=== PATIENT | female | born 2000 | race Caucasian/White ===

== ENCOUNTER 2020-04-08 12:38 | Emergency (ER) | payer SELFPAY ==
[2020-04-08 13:39] LABS: Urine Blood NEGATIVE (NEG); Urine Glucose NEGATIVE (NEG); Urine Protein NEGATIVE (NEG); Urine pH 6.5 (5.0-7.0)
[2020-04-08 13:44] LABS: Absolute Lymphocytes (CBC) 2.6 K/uL (0.7-4.9); Basophils % 0.5 % (0-1.3); Hematocrit 42.1 % (36.0-45.0); Lymphocytes % 35.1 % (15.3-44.8); MPV 9.2 fL (7.6-11.3); RBC Red Blood Cell Count 4.87 M/uL (3.86-4.86)
[2020-04-08 13:46] LABS: ALT/SGPT 16 U/L (12-78); AST/SGOT 16 U/L (15-37); Alkaline Phosphatase 72 U/L (45-117); BUN Blood Urea Nitrogen 12 mg/dL (7-18); Bicarbonate 28 mmol/L (21-32); Bilirubin Direct 0.1 mg/dL (0-0.2); Bilirubin Total 0.5 mg/dL (0.2-1.0); Glucose Level 90 mg/dL (74-106); NT PRO-BNP 62 pg/mL (<125); Potassium 3.8 mmol/L (3.5-5.1); Sodium Level 141 mmol/L (136-145); Troponin (Emerg Dept Use Only) < 0.02 ng/mL (0.0-0.045)
[2020-04-08 13:51] LABS: Protime INR 1.02
[2020-04-08] MEDS ORDERED: ONDANSETRON 4 MG/2 ML VIAL ONE (13:57)
--- NOTE | 2020-04-08 14:20 | RAD REPORT ---
EXAM DESCRIPTION: RAD - Chest Single View - 04/08/2020 1:56 pm CLINICAL HISTORY: presyncope COMPARISON: None TECHNIQUE: AP portable chest image was obtained 04/08/2020 1:56 pm . FINDINGS: Lungs are clear. Heart and vasculature are normal. No measurable pleural effusion and no p neumothorax. No acute bony abnormality seen. No acute aortic findings suspected. IMPRESSION: No acute cardiopulmonary process.
--- NOTE | 2020-04-08 15:24 | EDPHYS ---
Physician Documentation [facility] Name: Mary Ramachandran Age: 19 yrs Sex: Female : 2000 Arrival Date: 04/08/2020 Time: 12:39 Bed 20 Private MD: ED Physician Jostin Lamb HPI: 04/08 12:51 This 19 yrs old Female presents to ER via Ambulatory with complaints of jmm Nausea, Dizziness. 12:51 Onset: The symptoms/episode began/occurred gradually, 1 day(s) ago. Possible causes: jmm unknown. The symptoms are aggravated by nothing. The symptoms are alleviated by nothing. Associated signs and symptoms: Pertinent negatives: abdominal pain, dysuria, fever. The patient has not experienced similar symptoms in the past. This is a 19 year old female with no chronic medical conditions that presents to the ED with complaints of fatigue, near syncope. Denies chest pain or shortness of breath. . [employer]: 12:58 LMP 02/29/2020 iw Historical: - Allergies: 12:58 PENICILLINS; iw - Home Meds: 12:58 None [Active]; iw - PMHx: 12:58 None; iw - PSHx: 12:58 None; iw - Immunization history:: Adult Immunizations not up to date. - Social history:: Smoking status: Patient denies any tobacco usage or history of. ROS: 12:51 Cardiovascular: Negative for chest pain, palpitations, and edema. jmm 12:51 Constitutional: Positive for fatigue. 12:51 Respiratory: Negative for shortness of breath. 12:51 Neuro: Positive for near syncope. 12:51 All other systems are negative. Exam: 12:51 Constitutional: This is a well developed, well nourished patient who is awake, alert, jmm and in no acute distress. Head/Face: atraumatic. Eyes: EOMI, no conjunctival erythema appreciated ENT: Moist Mucus Membranes Neck: Trachea midline, Supple Chest/axilla: Normal chest wall appearance and motion. Cardiovascular: Regular rate and rhythm. No edema appreciated Respiratory: Normal respirations, no respiratory distress appreciated Abdomen/GI: Non distended, soft Back: Normal ROM Skin: General appearance color normal MS/ Extremity: Moves all extremities, no obvious deformities appreciated, no edema noted to the lower extremities Neuro: Awake and alert, normal gait Psych: Behavior is normal, Mood is normal, Patient is cooperative and pleasant Vital Signs: 12:55 BP 122 / 82; Pulse 80; Resp 16; Temp 97.9; Pulse Ox 99% on R/A; Weight 72.57 kg; Height iw 5 ft. 1 in. (154.94 cm); 13:45 BP 95 / 85; Pulse 77; Resp 16 S; Pulse Ox 98% on R/A; jd3 15:17 BP 99 / 66; Pulse 80; Resp 17 S; Pulse Ox 98% on R/A; jd3 15:22 BP 108 / 76; Pulse 75; Resp 19 S; Pulse Ox 99% on R/A; jd3 12:55 Body Mass Index 30.23 (72.57 kg, 154.94 cm) iw MDM: 12:54 Patient medically screened. [facility] 15:22 Data reviewed: vital signs, nurses notes. Counseling: I had a detailed discussion with brady the patient and/or guardian regarding: the historical points, exam findings, and any diagnostic results supporting the discharge/admit diagnosis, lab results, radiology results, to return to the emergency department if symptoms worsen or persist or if there are any questions or concerns that arise at home. ED course: Patient is alert and non toxic in appearance in the ED. Patient states feeling much better. Advised to follow up with pcp for reevaluation and otherwise given strict return precautions. Patient understood and agrees with the plan of care. . 04/08 12:59 Order name: Basic Metabolic Panel; Complete Time: 13:53 [facility] 04/08 12:59 Order name: CBC with Diff; Complete Time: 13:53 [facility] 04/08 12:59 Order name: LFT's; Complete Time: 13:53 [facility] 04/08 12:59 Order name: Magnesium; Complete Time: 13:53 [facility] 04/08 12:59 Order name: NT PRO-BNP; Complete Time: 13:53 [facility] 04/08 12:59 Order name: PT-INR; Complete Time: 14:55 [facility] 04/08 12:59 Order name: Troponin (emerg Dept Use Only); Complete Time: 13:53 [facility] 04/08 12:59 Order name: XRAY Chest (1 view); Complete Time: 14:28 [facility] 04/08 12:59 Order name: EKG; Complete Time: 13:01 [facility] 04/08 13:26 Order name: Urine Dipstick--Ancillary (enter results); Complete Time: 13:53 04/08 13:26 Order name: Urine --Ancillary (enter results); Complete Time: 13:53 04/08 14:52 Order name: D-Dimer; Complete Time: 14:55 [facility] 04/08 12:59 Order name: Cardiac monitoring; Complete Time: 13:26 [facility] 04/08 12:59 Order name: EKG - Nurse/Tech; Complete Time: 13:26 [facility] 04/08 12:59 Order name: IV Saline Lock; Complete Time: 13:26 [facility] 04/08 12:59 Order name: Labs collected and sent; Complete Time: 13: [facility] 04/08 12:59 Order name: O2 Per Protocol; Complete Time: 13:31 [facility] 04/08 12:59 Order name: O2 Sat Monitoring; Complete Time: 13:31 [facility] 04/08 12:59 Order name: Urine Dipstick-Ancillary (obtain specimen); Complete Time: 13:25 [facility] 04/08 13:02 Order name: Urine Test (obtain specimen); Complete Time: 13:25 [facility] Administered Medications: 13:44 Drug: Zofran (Ondansetron) 4 mg Route: IVP; Site: left antecubital; jd3 14:40 Follow up: Response: No adverse reaction jd3 Disposition: 17:06 Co-signature as Attending Physician, Jostin Lamb MD. rn Disposition: 04/08/20 15:24 Discharged to Home. Impression: Syncope and collapse. - Condition is Stable. - Discharge Instructions: Near-Syncope. - Medication Reconciliation Form, Thank You Letter, Antibiotic Education, Prescription Opioid Use, Work release form form. - Follow up: Private Physician; When: 2 - 3 days; Reason: Recheck today's complaints, Continuance of care, Re-evaluation by your physician. Signatures: Dispatcher [employer] [facility] Sammy Quinones PA PA jmm Williams, Irene, Jostin Sandhu RN, MD MD rn Davies, Jonathon, RN RN jd3 Corrections: (The following items were deleted from the chart) 14:53 14:30 D-DIMER+COAG.LAB.BRZ ordered. [facility] 15:37 15:24 04/08/2020 15:24 Discharged to Home. Impression: Syncope and collapse. Condition jd3 is Stable. Forms are Medication Reconciliation Form, Thank You Letter, Antibiotic Education, Prescription Opioid Use. Follow up: Private Physician; When: 2 - 3 days; Reason: Recheck today's complaints, Continuance of care, Re-evaluation by your physician. brady
--- NOTE | 2020-04-08 15:24 | ER ---
Nurse's Notes [facility] Name: Mary Ramachandran Age: 19 yrs Sex: Female : 2000 Arrival Date: 04/08/2020 Time: 12:39 Bed 20 Private MD: Diagnosis: Syncope and collapse Presentation: 04/08 12:55 Chief complaint: Patient states: yesterday was feeling nauseous, today was feeling iw faint and shaky. Coronavirus screen: At this time, the client does not indicate any symptoms associated with coronavirus-19. Ebola Screen: Patient negative for fever greater than or equal to 101.5 degrees Fahrenheit, and additional compatible Ebola Virus Disease symptoms Patient denies exposure to infectious person. Patient denies travel to an Ebola-affected area in the 21 days before illness onset. No symptoms or risks identified at this time. Initial Sepsis Screen: Does the patient meet any 2 criteria? No. Patient's initial sepsis screen is negative. Does the patient have a suspected source of infection? No. Patient's initial sepsis screen is negative. Risk Assessment: Do you want to hurt yourself or someone else? Patient reports no desire to harm self or others. Onset of symptoms was April 08, 2020. 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 - Social history:: Smoking status: Patient denies any tobacco usage or history of. Screenin:45 Abuse screen: Denies threats or abuse. Nutritional screening: No deficits noted. jd3 Tuberculosis screening: No symptoms or risk factors identified. Fall Risk Ambulatory Aid- None/Bed Rest/Nurse Assist (0 pts). Gait- Normal/Bed Rest/Wheelchair (0 pts) Mental Status- Oriented to own ability (0 pts). Total Green Fall Scale indicates No Risk (0-24 pts). Assessment: 13:44 General: Appears in no apparent distress. uncomfortable, Behavior is calm, cooperative, jd3 appropriate for age. Pain: Denies pain. Neuro: Level of Consciousness is awake, alert, obeys commands, Oriented to person, place, time, situation, Reports dizziness, Denies weakness blurred vision numbness. Cardiovascular: Denies chest pain, Capillary refill < 3 seconds Patient's skin is warm and dry. Respiratory: Airway is patent Respiratory effort is even, unlabored, Respiratory pattern is regular, symmetrical, Denies cough, shortness of breath. GI: Abdomen is flat, non-distended, Abd is soft and non tender X 4 quads. Reports nausea. : No signs and/or symptoms were reported regarding the genitourinary system. EENT: No signs and/or symptoms were reported regarding the EENT system. Derm: Skin is intact, Skin is dry, Skin is normal, Skin temperature is warm. Musculoskeletal: Circulation, motion, and sensation intact. Range of motion: intact in all extremities. 15:17 Reassessment: Patient appears in no apparent distress at this time. Patient and/or jd3 family updated on plan of care and expected duration. Pain level reassessed. Patient is alert, oriented x 3, equal unlabored respirations, skin warm/dry/pink. 15:35 Reassessment: Patient appears in no apparent distress at this time. Patient and/or jd3 family updated on plan of care and expected duration. Pain level reassessed. Patient is alert, oriented x 3, equal unlabored respirations, skin warm/dry/pink. Vital Signs: 12:55 BP 122 / 82; Pulse 80; Resp 16; Temp 97.9; Pulse Ox 99% on R/A; Weight 72.57 kg; Height iw 5 ft. 1 in. (154.94 cm); 13:45 BP 95 / 85; Pulse 77; Resp 16 S; Pulse Ox 98% on R/A; jd3 15:17 BP 99 / 66; Pulse 80; Resp 17 S; Pulse Ox 98% on R/A; jd3 15:22 BP 108 / 76; Pulse 75; Resp 19 S; Pulse Ox 99% on R/A; jd3 12:55 Body Mass Index 30.23 (72.57 kg, 154.94 cm) ED Course: 12:39 Patient arrived in ED. as 12:41 Sammy Quinones PA is PHCP. brady 12:41 Jostin Lamb MD is Attending Physician. brady 12:55 Saida King, RN is Primary Nurse. iw 12:57 Triage completed. iw 12:58 Arm band placed on. iw 13:25 Basic Metabolic Panel Sent. 5 13:25 CBC with Diff Sent. 5 13:25 LFT's Sent. 5 13:26 Magnesium Sent. 5 13:26 NT PRO-BNP Sent. 5 13:26 PT-INR Sent. 5 13:26 Troponin (emerg Dept Use Only) Sent. 5 13:26 Initial lab(s) drawn, by ia, sent to lab. EKG done, by ED staff, reviewed by Sammy UNGER. Urine collected: clean catch specimen, cloudy. Inserted saline lock: 22 gauge in left antecubital area, using aseptic technique. Blood collected. 13:28 Patient has correct armband on for positive identification. Placed in gown. Bed in low mh5 position. Call light in reach. Side rails up X 1. Warm blanket given. gambling monitor on. Pulse ox on. NIBP on. 13:31 Michael Marquez, RN is Primary Nurse. jd3 13:56 XRAY Chest (1 view) In Process Unspecified. EDMS 15:22 No provider procedures requiring assistance completed. jd3 15:35 IV discontinued, intact, bleeding controlled, No redness/swelling at site. Pressure jd3 dressing applied. Administered Medications: 13:44 Drug: Zofran (Ondansetron) 4 mg Route: IVP; Site: left antecubital; jd3 14:40 Follow up: Response: No adverse reaction jd3 Outcome: 15:24 Discharge ordered by . brady 15:35 Discharged to home ambulatory, with family. jd3 15:35 Condition: stable 15:35 Discharge instructions given to patient, Instructed on discharge instructions, follow up and referral plans. Demonstrated understanding of instructions, follow-up care. 15:37 Patient left the ED. jd3 Signatures: Dispatcher [employer] EDMS Sammy Quinones PA PA jmm Martinez, Amelia as Williams, Irene, RN RN Alyssia Henriquez Michael Zuleta RN RN jd3
[2020-04-08 15:46] VITALS: TEMP 97.9
[2020-04-08 15:49] VITALS: BP 108/76; O2SAT 99
== END 2020-04-08 15:37 | disposition home or self-care (01) ==
LOC: ER 12:38
DX: R55 Syncope and collapse (principal); R53.83 Other fatigue; Z88.0 Allergy status to penicillin
CPT/HCPCS: 36415; 71045; 80048; 80076; 81003; 81025; 83735; 83880; 84484; 85025; 85379; 85610; 93005; 96374; 99284; J2405

== ENCOUNTER 2020-06-30 11:12 | Emergency (ER) | payer OTHER, SELFPAY ==
--- OUTSIDE RECORDS SUMMARY | 2020-06-30 11:15 | XMS REPORT | Continuity of Care Document ---
:2000 Author Organization [facility] t Address [address] [place] [address] [address]. [address] [place] [address] Care Team Providers Name Role Phone Asked, Pcp Primary Care Physician Unavailable Doctor Unassigned, Name Attending Clinician Unavailable Lab Attending Clinician Unavailable Christine ALVAREZ Attending Clinician Payers Payer Name Policy Type Policy Number Effective Date Expiration Date S jimmy MEDICAIDMEDI [id number] 2020 [facility] [id number] 00:00:00 Hindu -Pr esentMedicai d Problems This patient has no known problems. Allergies, Adverse Reactions, Alerts Allergy Allergy Status Severity Reaction(s) Onset Inactive Treating Comm ents Source Name Type Date Date Clinician Cinnamyael Burti Active Other (See SOB, Ho ton ty to Comments) 06-04 Throat Methodi adverse 00:00: Swelling st reaction 00 s to drug Penicill Propensi Active Anaphylaxis [place] ins ty to 06-04 Methodi adverse 00:00: st reaction 00 s to drug Social History Social Habit Start Date Stop Date Quantity Comments Source Sex Assigned At [birth year] [facility] ethodist 00:00:00 00:00:00 Medications Ordered Filled Start Stop Current Ordering Indication Dosage Frequency Signature Comments Components Source Medication Medication Date Date Medication? Clinician (SIG) Name Name promethazin No 25mg Q6H Take 1 Brendon ston e 06-04 tablet (25 Methodi (PHENERGAN) 00:00: 23:59 mg total) st 25 MG 00 :00 by mouth tablet every 6 (six) hours as needed for nausea or vomiting for up to 7 days. pyridoxine, No 25mg Q6H Take 1 Brendon ston vitamin B6, 06-04 tablet (25 M ethodi (vitamin 00:00: 23:59 mg total) st B-6) 25 MG 00 :00 by mouth tablet every 6 (six) hours as needed (nausea and vomiting) for up to 7 days. Vital Signs Vital Name Observation Time Observation Value Comments Source Systolic blood 2020-06-04 03:36:00 105 mm[Hg] Sally Huynh pressure Diastolic blood 2020-06-04 03:36:00 65 mm[Hg] Bibi Huynh pressure Heart rate 2020-06-04 03:36:00 79 /min Sam Huynh Oxygen saturation in 2020-06-04 03:36:00 99 /min Sam Huynh Arterial blood by Pulse oximetry Body temperature 2020-06-04 00:37:00 36.72 Kendal Fidelia Huynh Respiratory rate 2020-06-04 00:37:00 18 /min Fidelia Huynh Body height 2020-06-04 00:37:00 154.9 cm Sam Huynh Body weight 2020-06-04 00:37:00 72.576 kg Sam Huynh BMI 2020-06-04 00:37:00 30.23 kg/m2 Sam Huynh Procedures Procedure Date / Time Performed Performing Clinician [facility] e US TRANSVAGINAL 2020-06-04 03:03:54 Samm King US SINGLE LESS 2020-06-04 03:03:33 Samm King THAN 14 WEEKS URINE CULTURE 2020-06-04 01:45:00 Samm King Meth odist HC COMPLETE BLD COUNT 2020-06-04 01:30:00 Samm King W/AUTO DIFF COMPREHENSIVE METABOLIC 2020-06-04 01:30:00 Samm King PANEL URINALYSIS SCREEN AND 2020-06-04 01:30:00 Samm King MICROSCOPY, WITH REFLEX TO CULTURE HCG QUANTITATIVE, SERUM 2020-06-04 01:30:00 Samm King Hindu RH TYPE 2020-06-04 01:30:00 Samm King odist ESTIMATED GFR 2020-06-04 01:30:00 ChristineSamm odjose Plan of Care Planned Activity Planned Date Details Comments Source Future Scheduled 2021-06-07 CHLAMYDIA SCREENING Fidelia ton Hindu Test 00:00:00 [code = CHLAMYDIA SCREENING] Future Scheduled 2020-10-01 INFLUENZA VACCINE Fideliaaurelio anshul Hindu Test 00:00:00 [code = INFLUENZA VACCINE] Future Scheduled 2019-11-01 Screening for Sam Spencer thodist Test 00:00:00 malignant neoplasm of cervix (procedure) [code = 441292174] Future Scheduled 2016 Hepatitis C Sam Met hodist Test 00:00:00 screening (procedure) [code = 705936224] Future Scheduled 2014 COVID-19 VACCINE (1) Brendon ly Hindu Test 00:00:00 [code = COVID-19 VACCINE (1)] Encounters Start End Encounter Admission Attending Care Care Encounter Source Date/Time Date/Time Type Type Clinicians Facility Department ID 2020-06-20 2020-06-20 Orders Doctor ABEBE [id number] 00:00:00 00:00:00 Only Unassigned, BLAKE [id number] [place] [facility] [id number] 2020-06-15 2020-06-15 [facility], [facility] [id number] 08:00:50 09:26:09 Visit [facility] PRODUCTION DESIGNER [id number] [facility] [id number] MATERNAL [id number] & CHILD [address] [place] [address] 2020-06-04 2020-06-04 Emergency SAMM KING [facility] [id number] [facility] 00:00:00 00:00:[address] Results Test Description Test Time Test Comments Results Result Comments Source Urine culture 2020-06-05 08:23:09 Test Item Value Reference Range Interpretation Comme nts Urine culture isolate Mixed manuel <=10-3 Specimen InformationSpecimen (test code = 69923-3) col/cc Source : UrineSpecimen Site: Clean catch [facility] Single Less Than 14 [id number] 03:09:58Hm Interface, Radiology Results 06/04/2020 3:13 AM CDT EXAM: US SINGLE LESS THAN 14 WEEKS, US TRANSVAGINALCLINICAL INDICATIONS: vomiting abd pain .TECHNIQUE: Pelvic ultrasound performed. Transabdominal and transvaginal images are obtained.COMPARISON: None.IMPRESSION: A gestational sac containing ayolk sac is identified within the endometrial cavity. pole not identified at this time, may bewithin normal limits of early for given mean sac diameter. Presence of subchorionic hemorrhage measuring 0.6 x 0.4 x 0.8 cm. Recommend follow-up as clinically indicated.Yolk sac measures 0.1 cm. Gestational sac size is 0.45 cm (too small to date). Uterus measures 6.9 x 3.5 x 4.2 cm. There isclosed.Right and left ovaries are within normal limits, with normal Doppler flow. Right ovary measures 3.1 x 2.2 x 2.0 cm and left ovary measures 3.4 x 2.3 x 2.6 cm. Probable left ovarian corpus luteummeasuring 0.9 cm.No free fluid seen in the pelvis. [facility]-[id number] Methodist[facility] [id number] 03:09:58Hm Interface, Radiology Results 06/04/2020 3:12 AM CDT EXAM: US SINGLE LESS THAN 14 WEEKS, US TRANSVAGINALCLINICAL INDICATIONS: vomiting abd pain .TECHNIQUE: Pelvic ultrasound performed. Transabdominal and transvaginal images are obtained.COMPARISON: None.IMPRESSION: A gestational sac containing ayolk sac is identified within the endometrial cavity. pole not identified at this time, may bewithin normal limits of early for given mean sac diameter. Presence of subchorionic hemorrhage measuring 0.6 x 0.4 x 0.8 cm. Recommend follow-up as clinically indicated.Yolk sac measures 0.1 cm. Gestational sac size is 0.45 cm (too small to date). Uterus measures 6.9 x 3.5 x 4.2 cm. There is closed.Right and left ovaries are within normal limits, with normal Doppler flow. Right ovary measures 3.1 x 2.2 x 2.0 cm and left ovary measures 3.4 x 2.3 x 2.6 cm. Probable left ovarian corpus luteummeasuring 0.9 cm.No free fluid seen in the pelvis. [facility]-[id number] Hindu
[2020-06-30 12:04] LABS: Urine Blood Negative (Negative); Urine Glucose Negative (Negative); Urine Protein Negative (Negative); Urine Specific Gravity 1.025 (1.005-1.030)
[2020-06-30 13:02] LABS: Urine Specific Gravity/Preg 1.025 (1.005-1.030)
--- NOTE | 2020-06-30 13:32 | ER ---
Nurse's Notes [facility] Name: Mary Ramachandran Age: 19 yrs Sex: Female : 2000 Arrival Date: 06/30/2020 Time: 11:15 Bed 14 Private MD: Diagnosis: 8 weeks gestation of ;Low back pain Presentation: 06/30 11:35 Chief complaint: Low back pain and N/V x 2 days. 8 weeks , LMP 04/30. hb Coronavirus screen: At this time, the client does not indicate any symptoms associated with coronavirus-19. Ebola Screen: No symptoms or risks identified at this time. Initial Sepsis Screen: Does the patient meet any 2 criteria? No. Patient's initial sepsis screen is negative. Does the patient have a suspected source of infection? No. Patient's initial sepsis screen is negative. Risk Assessment: Do you want to hurt yourself or someone else? Patient reports no desire to harm self or others. Onset of symptoms was June 29, 2020. 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 - Social history:: Smoking status: Patient denies any tobacco usage or history of. Screenin:42 Abuse screen: Denies threats or abuse. Denies injuries from another. Nutritional ca1 screening: No deficits noted. Tuberculosis screening: No symptoms or risk factors identified. Fall Risk None identified. Assessment: 12:42 General: Appears in no apparent distress. comfortable, Behavior is calm, cooperative, ca1 appropriate for age. Pain: Complains of pain in low back area Pain currently is 6 out of 10 on a pain scale. Pain began 2-3 days ago. Is intermittent, Aggravated by repositioning. Neuro: Level of Consciousness is awake, alert, obeys commands, Oriented to person, place, time, situation. GI: Abdomen is round non-distended, Bowel sounds present X 4 quads. Abd is soft and non tender X 4 quads. : No signs and/or symptoms were reported regarding the genitourinary system. Denies vaginal bleeding. EENT: No signs and/or symptoms were reported regarding the EENT system. Derm: Skin is intact, is healthy with good turgor, Skin is pink, warm \T\ dry. Musculoskeletal: Circulation, motion, and sensation intact. Capillary refill < 3 seconds. 13:38 Reassessment: Patient appears in no apparent distress at this time. Patient and/or ca1 family updated on plan of care and expected duration. Pain level reassessed. Patient is alert, oriented x 3, equal unlabored respirations, skin warm/dry/pink. Vital Signs: 11:35 BP 126 / 85; Pulse 88; Resp 16; Temp 97.9; Pulse Ox 100% ; Pain 8/10; hb 13:38 BP 119 / 81; Pulse 92; Resp 18; Pulse Ox 100% on R/A; ca1 ED Course: 11:15 Patient arrived in ED. as 11:36 Triage completed. hb 12:42 Patient has correct armband on for positive identification. Bed in low position. Call ca1 light in reach. Side rails up X 1. Pulse ox on. NIBP on. Warm blanket given. 12:42 Arm band placed on. ca1 12:43 Arina Lau FNP-C is [facility]. kb 12:43 Douglas Milton MD is Attending Physician. kb 12:56 Transvaginal Ob In Process Unspecified. EDMS 13:08 Smiley Garza, RN is Primary Nurse. ca1 13:37 No provider procedures requiring assistance completed. Patient did not have IV access ca1 during this emergency room visit. Administered Medications: No medications were administered Outcome: 13:31 Discharge ordered by . kb 13:37 Discharged to home ambulatory. ca1 13:37 Condition: stable 13:37 Discharge instructions given to patient, Instructed on discharge instructions, follow up and referral plans. Demonstrated understanding of instructions, follow-up care. 13:38 Patient left the ED. ca1 Signatures: Dispatcher [employer] EDNM Arina Lau FNP-C FNP-Ckb Martinez, Amelia as Baxter, Heather, RN RN Smiley Garza RN RN ca1
--- NOTE | 2020-06-30 13:32 | EDPHYS ---
Physician Documentation [facility] Name: Mary Ramachandran Age: 19 yrs Sex: Female : 2000 Arrival Date: 06/30/2020 Time: 11:15 Bed 14 Private MD: ED Physician Douglas Milton HPI: 06/30 14:10 This 19 yrs old Female presents to ER via Ambulatory with complaints of Back kb Pain - 8 wks preg, Abdominal Pain. 14:10 The patient presents to the emergency department with back pain. The estimated kb gestational age is 8 weeks. course: care: none, Leakage of Fluid: none appreciated, Ultrasound: the patient had an ultrasound, which was normal, Risk/complications: no obvious risks or complications are appreciated. Previous pregnancies: the patient has never been . Associated signs and symptoms: The patient has no apparent associated signs or symptoms. The patient has not experienced similar symptoms in the past. The patient has not recently seen a physician. Pt reports she started having back pain and this is her first so she looked it up on [employer] said it could be a miscarriage so she came to make sure everything was ok. No abd pain or vaginal bleeding. 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 - Social history:: Smoking status: Patient denies any tobacco usage or history of. ROS: 13:39 Constitutional: Negative for fever, chills, and weight loss, Respiratory: Negative for kb shortness of breath, cough, wheezing, and pleuritic chest pain, Abdomen/GI: Negative for abdominal pain, nausea, vomiting, diarrhea, and constipation, : Negative for injury, bleeding, discharge, and swelling, MS/Extremity: Negative for injury and deformity, Skin: Negative for injury, rash, and discoloration, Neuro: Negative for headache, weakness, numbness, tingling, and seizure. 13:39 Back: Positive for pain at rest, pain with movement. Exam: 14:09 Constitutional: This is a well developed, well nourished patient who is awake, alert, kb and in no acute distress. Head/Face: Normocephalic, atraumatic. Respiratory: Respirations even and unlabored. No increased work of breathing, no retractions or nasal flaring. Abdomen/GI: Soft, non-tender. No distention Back: No spinal tenderness. No costovertebral tenderness. Full range of motion. Skin: Warm, dry with normal turgor. Normal color. MS/ Extremity: Pulses equal, no cyanosis. Neurovascular intact. Full, normal range of motion. Neuro: Awake and alert, GCS 15, oriented to person, place, time, and situation. Moves all extremities. Normal gait. Vital Signs: 11:35 BP 126 / 85; Pulse 88; Resp 16; Temp 97.9; Pulse Ox 100% ; Pain 8/10; hb 13:38 BP 119 / 81; Pulse 92; Resp 18; Pulse Ox 100% on R/A; ca1 MDM: 12:43 Patient medically screened. kb 13:38 Data reviewed: vital signs, nurses notes. Data interpreted: Pulse oximetry: on room air kb is 100 %. Interpretation: normal. Counseling: I had a detailed discussion with the patient and/or guardian regarding: the historical points, exam findings, and any diagnostic results supporting the discharge/admit diagnosis, lab results, radiology results, the need for outpatient follow up, an OB/Gyne specialist, to return to the emergency department if symptoms worsen or persist or if there are any questions or concerns that arise at home. ED course: Pt has first OB appt 07/05/20. 06/30 12:04 Order name: Urine Dipstick-Ancillary; Complete Time: 12:48 EDAZ 06/30 12:16 Order name: Urine --Ancillary (enter results) 06/30 11:43 Order name: Urine Dipstick-Ancillary (obtain specimen); Complete Time: 12:15 kb 06/30 11:43 Order name: Urine Test (obtain specimen); Complete Time: 12:15 kb 06/30 12:16 Order name: Urine --Ancillary; Complete Time: 13:02 EDAZ 06/30 12:21 Order name: US Transvaginal Ob; Complete Time: 13:38 kb Administered Medications: No medications were administered Disposition: 07/01 08:04 Co-signature as Attending Physician, Douglas Milton MD I agree with the assessment and ludmila plan of care. Disposition: 06/30/20 13:31 Discharged to Home. Impression: 8 weeks gestation of , Low back pain. - Condition is Stable. - Discharge Instructions: First Trimester of , [id number]. - Medication Reconciliation Form, Thank You Letter, Antibiotic Education, Prescription Opioid Use form. - Follow up: Emergency Department; When: As needed; Reason: Worsening of condition. Follow up: Private Physician; When: 2 - 3 days; Reason: Recheck today's complaints, Continuance of care, Re-evaluation by your physician. Signatures: Dispatcher [employer] EDMS Arina Lau, MILIEU COUNSELOR-C ASIA-Douglas Henderson MD MD cha Baxter, Heather, RN RN Smiley Garza RN RN ca1 Corrections: (The following items were deleted from the chart) 06/30 13:38 13:31 06/30/2020 13:31 Discharged to Home. Impression: 8 weeks gestation of ; ca1 Low back pain. Condition is Stable. Forms are Medication Reconciliation Form, Thank You Letter, Antibiotic Education, Prescription Opioid Use. Follow up: Emergency Department; When: As needed; Reason: Worsening of condition. Follow up: Private Physician; When: 2 - 3 days; Reason: Recheck today's complaints, Continuance of care, Re-evaluation by your physician. kb 14:10 14:09 Constitutional: This is a well developed, well nourished patient who is awake, kb alert, and in no acute distress. Head/Face: Normocephalic, atraumatic. Respiratory: Respirations even and unlabored. No increased work of breathing, no retractions or nasal flaring. Abdomen/GI: Soft, non-tender. No distention Skin: Warm, dry with normal turgor. Normal color. MS/ Extremity: Pulses equal, no cyanosis. Neurovascular intact. Full, normal range of motion. Neuro: Awake and alert, GCS 15, oriented to person, place, time, and situation. Moves all extremities. Normal gait. kb
--- NOTE | 2020-06-30 13:37 | RAD REPORT ---
EXAM DESCRIPTION: US - Transvaginal OB - 06/30/2020 1:05 pm CLINICAL HISTORY: with abdominal pain COMPARISON: None. FINDINGS: The uterus measures 9 x 6 x 6 centimeters. A gestational sac is present within the endome trium. Within this is a pole measuring 4.1 centimeters. Cardiac activity 169 beats per minute. Ovaries are normal in size and echotexture.. No significant free fluid IMPRESSION: Single live intrauterine with an estimated gestational age 8 weeks 4 days.
[2020-06-30 13:59] VITALS: TEMP 97.9; O2SAT 100
[2020-06-30 14:00] VITALS: BP 119/81
== END 2020-06-30 13:38 | disposition home or self-care (01) ==
LOC: ER 11:12
DX: O99.891 Other specified diseases and conditions complicating pregnancy (principal); M54.5 Low back pain; Z3A.08 8 weeks gestation of pregnancy
CPT/HCPCS: 76817; 81003; 81025; 99283